=== PATIENT | male | born 1965 | race Caucasian/White ===

== ENCOUNTER 2017-02-27 13:41 | Emergency (ER) | payer MEDICARE, MEDICAID ==
[~2017-02-27 13:41] MED LIST: ABILIFY5 M1 PO; ASPIRIN EC81 MG PO; ATIVAN1 M2 PO; CATAPRES0.1 M1 PO; CELEBREX200 M1 PO; COMPAZINE10 MG PO; COMPAZINE25 M1 PR; DILAUDID8 MG; DOXYCYCLINE; ERBITUX200 MG/100 IV; FLEXERIL10 MG PO; HYDROXYZINE HCL50 M1 PO; LEXAPRO10 MG; LIDOCAINE VISCOUS; MAGIC MOUTHWASH SSW; MAPAP500 M3 PO; MIRALAX17 G2 PO; MORPHINE SULFAT60 M5 PO; MS CONTIN15 M1 PO; MS CONTIN60 M1 PO; NORCO 7.5/325 T1 TAB PO; NYSTATIN100000 UNI SSP; ONDANSETRON HCL8 M1 PO; PRAVASTATIN SOD10 M1 PO; PRISTIQ ER100 MG PO; PRISTIQ ER50 MG PO; SEROQUEL200 MG; SEROQUEL50 MG; TRANSDERM-SCOP1 EACH TD; VALIUM10 MG
[2017-02-27] MEDS ORDERED: KEFLEX500 M4 PO (14:04)
[2017-02-27] MEDS ORDERED: VALIUM5 M1 PO (14:06)
[2017-02-27] MEDS ORDERED: COLACE100 M1 PO (14:07)
[2017-02-27] MEDS ORDERED: BENADRYL25 M3 PO (14:07)
[2017-02-27] MEDS ORDERED: NEURONTIN300 M1 PO (14:08)
[2017-02-27] MEDS ORDERED: ATIVAN1 M2 PO (14:08)
[2017-02-27] MEDS ORDERED: DIGESTIVE PROB1 EACH PO (14:11)
[2017-02-27] MEDS ORDERED: PERCOCET 5-3251 EACH PO (14:11)
[2017-02-27] MEDS ORDERED: NORCO 7.5-3251 EACH PO (15:04)
== END 2017-02-27 15:30 ==
LOC: EDMED 13:41
DX: M54.5 Low back pain (principal); F17.200 Nicotine dependence, unspecified, uncomplicated; Z88.0 Allergy status to penicillin; Z91.040 Latex allergy status; Z98.890 Other specified postprocedural states
CPT/HCPCS: J2270